=== PATIENT | female | born 1960 | race Caucasian/White ===

== ENCOUNTER → 2016-05-07 | Outpatient (CLI) | payer OTHER ==
--- NOTE | 2016-05-07 17:13 | DX ---
DEXA Bone Mineral Densitometry May 07, 2016 Clinical Indications: 55-year-old postmenopausal woman with history of back pain. The patient occas ionally takes supplemental vitamin D and multivitamins. Baseline. Technique: Bone Mineral Densitometry (BMD) by Dual Energy X-Ray Absorptiometry (DEXA) was performed utilizing the Luminal scanner. The lumbar spine was evaluated in the AP projection. The bilat eral hips and left forearm were evaluated in the AP projection. Vertebral fracture assessment was al so performed. Comparison: None. AP Lumbar Spine: The L1, L2, L3, and L4 vertebral bodies were evaluated. BMD: 1.256 gm/cm2. T-score: 0.5 SD. Z-score: 1 SD. AP Left Hip: Total BMD: 1.070 gm/cm2. T-score: 0.5 SD. Z-score: 0.9 SD. AP Right Hip: Neck BMD: 0.950 gm/cm2. T-score: -0.6 SD. Z-score: 0.2 SD. AP Left Forearm, 04/27: BMD: 0.914 gm/cm2. T-score: 0.4 SD. Z-score: 1.1 SD. Vertebral Fracture Assessment: No significant fracture deformity. No prevertebral aortic calcificat ion, significant marginal bone spurring, facet arthrosis, or intrinsic vertebral body sclerosis that would affect the accuracy of the lumbar spine BMD measurement. Conclusion: Considering the lowest measured site, the patient has normal bone mineral density. The ten year risk for any major osteoporotic fracture is 10.6% and for a hip fracture is 0.4%. To prevent osteoporosis and to promote the patient's bone density, the following recommendations shou ld be considered: 1. Pursue a regular regimen of weightbearing and muscle-strengthening exercises in order to reduce t he risk of falls and fractures (as tolerated by the patient's general medical condition). 2. Ensure that daily dietary calcium uptake is maximized. 3. Ensure that intake of vitamin D is 400 to 800 international units. 4. Consider follow up DEXA scan in two years to assess the rate of bone loss in this patient.
== END ==
LOC: FIMAGING 10:06
PROVIDERS: ATTEND Family Medicine
DX: Z13.820 Encounter for screening for osteoporosis (principal); Z78.0 Asymptomatic menopausal state; M54.9 Dorsalgia, unspecified

== ENCOUNTER → 2016-05-24 | Outpatient (CLI) | payer OTHER ==
--- NOTE | 2016-05-24 16:33 | MA ---
Screening Digital Mammogram With iCAD Analysis Clinical Indications: Routine screening. Technique: Standard cephalocaudal projections are obtained. Digital breast tomosynthesis was performe d in the MLO projection with reconstruction at 1.0 mm slice thickness and composite MLO views reconst ructed. This examination is processed by the iCAD computer aided detection system. Comparison: July 2009. Breast density: Type B; Scattered fibroglandular densities. Findings: CAD was reviewed. No spiculated masses, suspicious calcifications or secondary signs of mal ignancy are seen. There has been no significant change in the appearance of either breast. Impression: Negative mammogram. BI-RADS 1. Recommendation: Routine mammographic screening in one year as long as [facility]. Negative mammography should not preclude additional workup of a clinically suspicious finding. The patient's information is entered into a reminder system with a target due date for her next mammo gram.
== END ==
LOC: FIMAGING 14:40
PROVIDERS: ATTEND Family Medicine
DX: Z12.31 Encounter for screening mammogram for malignant neoplasm of breast (principal)
CPT/HCPCS: G0202

== ENCOUNTER 2016-06-15 06:40 | Day surgery (SDC) | payer OTHER ==
[2016-06-15] MEDS ORDERED: LR 1,000 ML IV ONE (07:57)
[2016-06-15] MEDS ORDERED: PROPOFOL/EMULSION 500 MG/50 ML BOTTLE IV ONE (08:00)
[2016-06-15] MEDS ORDERED: PROPOFOL 200 MG/20 ML VIAL ONE ×3 (08:18→08:33)
--- NOTE | 2016-06-15 09:12 | GPN ---
[f rep st] PROCEDURE NOTE PREPROCEDURE DIAGNOSIS: Need for screening colonoscopy. POSTPROCEDURE DIAGNOSIS: Multiple rectal polyps, status post removal. PROCEDURE: Colonoscopy with snare, colonoscopy with biopsy. MEDICATIONS: Monitored anesthesia care. INDICATION: This patient is a 55-year-old female, who is here for screening colonoscopy. She has n ever had a colonoscopy. She has a history of a traumatic brain injury. She has no family history o f colon cancer or colon polyps in a first-degree relative. The risks and benefits of the procedure were discussed with the patient and consent obtained. Risks include, but not limited to, bleeding, perforation, risks associated with sedation. The patient is an ASA class 2. PROCEDURE NOTE: The adult colonoscope was advanced to the terminal ileum which appeared normal. Th e entire colon showed changes of melanosis. Otherwise the appendiceal orifice, cecum, ileocecal brenda ve, ascending colon, hepatic flexure, transverse colon, splenic flexure, descending colon, and sigmo id colon were normal. There were multiple polyps in the rectum. A total of 5 polyps measuring 1-2 mm were removed using cold biopsy forceps. They had the appearance of hyperplastic polyps. Three 4 -5 mm polyps were removed using cold snare polypectomy technique and retrieved for pathology. They were all placed in the rectal pathology bottle, all appeared hyperplastic. IMPRESSION: 1. Multiple rectal colon polyps, status post removal. 2. 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 RECOMMENDATIONS: 1. Discharge home with escort. 2. Advance diet as tolerated. 3. Continue prior medications. 4. Follow up the final pathology results. Results available within 10 days. 5. Repeat colonoscopy based on pathology determination. Follow up of hyperplastic, a 10-year follo wup is appropriate. If 3 or more polyps are adenomatous, a 3-year followup is recommended. If 1 or 2 polyps are adenomatous, a 5-year followup is recommended. Thank you for allowing me to participate in the care of this patient. Please do not hesitate to forrest mily with questions. /[id number]/MODL
== END 2016-06-15 10:08 | disposition home or self-care (01) ==
LOC: FSGY 06:40
PROVIDERS: ATTEND Internal Medicine Gastroenterology
PROC: 0DBP8ZX Excision of Rectum, Via Natural or Artificial Opening Endoscopic, Diagnostic (ICD-10-PCS; principal; 2016-06-15 08:15)
DX: K62.1 Rectal polyp (principal); E11.9 Type 2 diabetes mellitus without complications; Z87.828 Personal history of other (healed) physical injury and trauma
CPT/HCPCS: J2704

== ENCOUNTER → 2017-06-30 | Outpatient (CLI) | payer OTHER | LOC: FIMAGING 16:11 | PROVIDERS: ATTEND Family Medicine | DX: M21.752 Unequal limb length (acquired), left femur (principal); M51.36 Other intervertebral disc degeneration, lumbar region; M51.37 Other intervertebral disc degeneration, lumbosacral region ==